=== PATIENT | male | born 2000 | race Caucasian/White ===

== ENCOUNTER 2025-06-22 11:45 | Emergency (ER) | payer OTHER, SELFPAY ==
[2025-06-22 11:48] VITALS: BP 159/98
[2025-06-22 12:32] VITALS: BMI 23.6
--- NOTE | 2025-06-22 12:43 | ED.GENMED ---
History of Present Illness
<Gudelia Mosqueda MD - Last Filed: 06/23/25 19:57>
General
Chief Complaint: Headache
Source: patient and family
Time Seen by Provider: 06/22/25 12:50
History of Present Illness
History of Present Illness:
24-year-old male presents emergency department complaints of headaches that have been happening on and off for the last 3-1/2 weeks. He says he does not remember what he was doing when it first started, but it was not sudden onset or worst of life.
The headaches will come and go and he notes that the majority the time they happen only after he falls asleep. The headaches wake him up and feel mostly on the right posterior occiput area does this 'pulsating'. He will take an [id number]
medication such as Tylenol or Motrin and symptoms resolve within 90 minutes and he falls back to sleep. He saw his primary and was prescribed 40 mg of prednisone for the last 5 days which did make him feel much better and the headaches were
described as 'minor'. Friday was the first time he noticed the headache actually during the day, again resolved with Motrin or Tylenol. Since discontinuing the prednisone he feels like the headaches, when they occur, are again rated a 7 out of 10.
He has what he describes as 'the remnants' of the headache now also 'not really a headache or anything'. He denies associated nausea, vomiting, fever, chills, tick bite, rash, recent trauma, recent chiropractor manipulation, recent roller
coasters, numbness, tingling, change in vision, dizziness, difficulty walking, focal weakness, clumsiness, or other complaints. There is a remote history of aneurysms on the mother side of the family however testing of family members such as this
patient was never recommended. When asked about neck pain he states 'not really', but does note a 'slight' discomfort occasionally at the right posterior neck. He was just prescribed a muscle relaxant for that.
Past History
<Gudelia Mosqueda MD - Last Filed: 06/23/25 19:57>
Past History
ED Past Medical History: None
ED Past Surgical History: None
Social History
Tobacco: Non-smoker
Alcohol: Occasional
Drug: None
Personal: Single
Employment: Employed
Phy Exam
<Gudelia Mosqueda MD - Last Filed: 06/23/25 19:57>
Physical Exam
Physical Exam:
GENERAL: Alert , in no apparent distress
EYE: pupils equal and reactive
NECK: Supple, no significant adenopathy.
ENT: o/p clr, mmm.
CARDIAC: Regular rate and rhythm .
LUNGS: Clear breath sounds bilaterally, no acute respiratory distress,
ABDOMEN: Soft, without focal tenderness, no r/g, no cvat
NEUROLOGICAL: Alert and oriented, no focal neuro deficits, motor 5/5, sens intact, fundoscopic wnl, visual alicia intact, gait wnl
SKIN: Warm and dry, skin intact.
MUSCULOSKELETAL: No edema, well perfused.
PSYCH: Normal and appropriate interaction.
Course
<Gudleia Mosqueda MD - Last Filed: 06/23/25 19:57>
Orders/Labs/Results
Orders:
Orders
06/22/25 12:58
CT Head W/o Iv Contrast Urgent
Comment:
Reason For Exam: zamora
Vital Signs
Initial and Last Documented VS:
Initial Vital Signs
Temp Pulse Resp BP Pulse Ox
98.5 F 89 18 159/98 98
06/22/25 11:48 06/22/25 11:48 06/22/25 11:48 06/22/25 11:48 06/22/25 11:48
Last Documented Vital Signs
Temp Pulse Resp BP Pulse Ox
98.5 F 89 18 159/98 98
06/22/25 11:48 06/22/25 11:48 06/22/25 11:48 06/22/25 11:48 06/22/25 13:19
<Carol Thurman PA-C - Last Filed: >
Orders/Labs/Results
Orders:
Orders
06/22/25 12:58
CT Head W/o Iv Contrast Urgent
Comment:
Reason For Exam: zamora
Vital Signs
Initial and Last Documented VS:
Initial Vital Signs
Temp Pulse Resp BP Pulse Ox
98.5 F 89 18 159/98 98
06/22/25 11:48 06/22/25 11:48 06/22/25 11:48 06/22/25 11:48 06/22/25 11:48
Last Documented Vital Signs
Temp Pulse Resp BP Pulse Ox
98.5 F 89 18 159/98 98
06/22/25 11:48 06/22/25 11:48 06/22/25 11:48 06/22/25 11:48 06/22/25 13:19
<Gudelia Mosqueda MD - Last Filed: 06/23/25 19:57>
*Pulse Oximetry
Patient hypoxic: no
*Critical Care Note
Total Time (30-74mins, 75-104mins- exclusive of procedures): Not Applicable
<Carol Thurman PA-C - Last Filed: >
*Pulse Oximetry
SaO2: 98
Oxygen Mode of Delivery: Room air
<Gudelia Mosqueda MD - Last Filed: 06/23/25 19:57>
Update Note
Update Note:
Patient presents to the Emergency Department with ____headache
Number and Complexity of Problems Addressed at the Encounter
� Chronic conditions affecting care:
� Acute Exacerbation and/or Progression of Chronic Illness:
� Differential Diagnosis includes: But not limited to tension headaches, intracranial neoplasm, migraine, cluster headache, etc. etc. etc.
Amount and/or Complexity of Data to be Reviewed and Analyzed
� I performed an independent evaluation of and my interpretation is:
EKG:
CT: Head CT NAD
Xrays:
Laboratory Studies:
Other:
� Review of other/old records reveals:
� Clinical information was obtained by an independent historian: Mom who is bedside
� Prescriptions/Medications Considered but not given:
� Further testing considered but not performed:
Risk of Complications and/or Morbidity or Mortality of Patient Management
� Social determinants of health affecting care:
� Discussion with other providers (PCP, Hospitalists, Consultants, etc):
� Escalation of care including admission/observation vs risk of discharge considered: 3:44 PM patient comfortable, does not request any medications. Neurological exam completely normal, no stigmata, red flags to suggest bleed,
infection, vascular injury, etc. Discussed with patient and mom importance of follow-up and reasons return to the ER. They have a contact at [facility] who they plan to contact immediately.
ED Attending Note
<Carol Thurman PA-C - Last Filed: >
-
Portions of this chart may have been created with voice recognition software.� Occasional wrong word or��sound alike� substitutions may have occurred due to the inherent limitations of voice recognition software.
Discharge Plan
Departure
Patient Disposition: Home (Routine Discharge)
Date of Disposition: 06/22/25
Time of Disposition: 15:40
Patient with high blood pressure during this ER visit?: Yes
Condition: Good
Discharge Problem:
Headache
Instructions: Headache, Adult (DC), BLOOD PRESSURE
Referrals:
Eulogio Chavarria MD [Family Provider, Family Practice]
Activity Restrictions/Additional Instructions:
IF YOU DEVELOP INCREASING NEW OR PERSISTENT HEADACHE, ANY NECK PAIN, NUMBNESS, TINGLING, WEAKNESS, DIZZINESS, DIFFICULTY WALKING, CHANGE IN VISION, OR OTHER WORRISOME SIGNS, PLEASE RETURN TO THE ER IMMEDIATELY! PLEASE FOLLOW-UP WITH THE NEUROLOGIST
SOON POSSIBLE.
Interventions
Interventions:
*Risk Screen - Suicide Last Done: 06/22/25 11:48
*General Assessment Last Done: 06/22/25 11:48
*Neglect/Abuse Screening Last Done: 06/22/25 11:48
*ED- Fall Risk Assessment Last Done: 06/22/25 11:48
*ED COVID-19 Vaccine History Last Done: 06/22/25 11:48
*Nursing Disposition Last Done: 06/22/25 16:20
ED- Neurological Assessment Last Done: 06/22/25 12:33
Discharge Date and Time
Discharge Date/Time: 06/22/25 16:21
Print Language: EMIRATI
== END 2025-06-22 16:21 | disposition home or self-care (01) ==
LOC: EMR 11:45
PROVIDERS: EMERGENCY PHYSICIAN Emergency Medicine; FAMILY PHYSICIAN Family Medicine
DX: R51.9 Headache, unspecified (principal)
CPT/HCPCS: 99284; 70450